=== PATIENT | male | born 2000 | race Caucasian/White ===

== ENCOUNTER 2022-11-24 13:23 | Emergency (ER) | payer BC, SELFPAY ==
[2022-11-24 13:28] VITALS: BP 121/70; PULSE 86; RESP 16; TEMP 36.3; O2SAT 100
--- NOTE | 2022-11-24 14:17 | ED.GENADULT ---
HPI - General Adult General Chief complaint: Wound/Laceration Stated complaint: hand lac Time Seen by Provider: 11/24/22 13:39 Source: patient Mode of arrival: ambulatory Limitations: no limitations History of Present Illness HPI narrative: This is a 22-year-old male who presents to the ED with chief complaint of a finger laceration injury that occurred just prior to arrival. Patient states he was moving a mini fridge into his dorm and accidentally cut to the base of the right fifth finger on the back of the fridge. Reports bleeding was difficult to control initially but is now controlled. Reports a little bit of pain in the area but denies any further site of pain or injury. Denies any numbness or weakness. States his tetanus is up-to-date. Related Data Allergies Allergy/AdvReac Type Severity Reaction Status Date / Time Fish Containing Products Allergy Difficulty Verified 11/24/22 13:26 Breathing Review of Systems Review of Systems: All systems as dictated in HPI Exam Narrative: GENERAL: Well-appearing, well-nourished, and in no acute distress. HEAD: Normocephalic, atraumatic. EYES: PERRLA and EOMI. ENT: Nares clear, no rhinorrhea or epistaxis. Mucous membranes moist. Oropharynx without tonsillar hypertrophy exudate or other lesions. NECK: Supple. No adenopathy or masses. CHEST: No respiratory distress. Clear to auscultation. No wheezes rales or rhonchi HEART: Regular rate and rhythm. No murmur heard. Normal peripheral pulses. ABDOMEN: Soft, nontender, nondistended, normal active bowel sounds. MSK: Normal range of motion. No edema. SKIN: There is a 2.5 cm laceration to the base of the right fifth finger. It is volar. Bleeding controlled. Minimal tenderness. NEURO: Alert and oriented x3. No focal deficits. PSYCH: Normal mood and affect. Course Vital Signs Vital signs: Vital Signs Temperature 97.3 F L 11/24/22 13:28 Pulse Rate 86 11/24/22 13:28 Respiratory Rate 16 11/24/22 13:28 Blood Pressure 121/70 11/24/22 13:28 Pulse Oximetry 100 11/24/22 13:28 Temperature 97.3 F L 11/24/22 13:28 Pulse Rate 86 11/24/22 13:28 Respiratory Rate 16 11/24/22 13:28 Blood Pressure 121/70 11/24/22 13:28 Pulse Oximetry 100 11/24/22 13:28 Procedures Laceration Laceration 1: Date: 11/24/22 Time: 15:12 Site: hand Side (If applicable): right (5th finger) Size (cm): 2.5 Description: linear and clean Depth: simple, single layer Local Anesthetic: lidocaine 1% Amount of anesthesia used (mL): 2 Pre-repair: wound explored and irrigated extensively ====== Skin Level ====== Skin layer closed with: nylon Size (cm): 5-0 Number of sutures: 6 Technique: simple, interrupted ====== Subcutaneous Layer ====== ====== Muscle Layer ====== ====== Tendon Layer ====== Dressing: None Medical Decision Making MDM Narrative Medical decision making narrative: This is a 22-year-old male who presents to the ED with chief complaint of laceration to the right fifth finger at the base. He was moving many fridge and cut it on the back of the appliance. Vitals are normal. Tetanus is up-to-date. The wound was well cleaned irrigated and sutured here in the department. Laceration instructions given. Pt will be discharged in stable condition. Return precautions given and supportive measures discussed. Pt is understanding and agreeable with plan for discharge and follow-up with PCP. Vital Signs Vital Signs: Vital Signs Temperature 97.3 F L 11/24/22 13:28 Pulse Rate 86 11/24/22 13:28 Respiratory Rate 16 11/24/22 13:28 Blood Pressure 121/70 11/24/22 13:28 Pulse Oximetry 100 11/24/22 13:28 Temperature 97.3 F L 11/24/22 13:28 Pulse Rate 86 11/24/22 13:28 Respiratory Rate 16 11/24/22 13:28 Blood Pressure 121/70 11/24/22 13:28 Pulse Oximetry 100
[2022-11-24] MEDS: LIDOCAINE HCL 1% LOCAL INJ 10 ML VIAL INFILTRATE (14:43)
== END 2022-11-24 15:49 | disposition home or self-care (01) ==
PROVIDERS: Emergency Provider Physician Assistant
DX: S61.216A Laceration without foreign body of right little finger without damage to nail, initial encounter (principal); W26.8XXA Contact with other sharp object(s), not elsewhere classified, initial encounter
CPT/HCPCS: 12001; 99282